=== PATIENT | female | born 1990 | race African-American/Black ===

== ENCOUNTER 2021-08-20 23:02 | Emergency (ER) | payer MEDICAID, OTHER ==
[~2021-08-20] VITALS: Ht 154.9 cm; Wt 64.0 kg
[2021-08-20 23:30] VITALS: BP 118/54
[2021-08-20] MEDS ORDERED: ONDANSETRON 4MG ODT PO ONE (23:45)
[2021-08-21] MEDS ORDERED: NAPR500T7 MT (00:58)
[2021-08-21] MEDS ORDERED: ONDA4TAB11 PO (00:58)
[2021-08-21] MEDS ORDERED: KETOROLAC 60MG/2ML VIAL IM ONE (01:00)
== END 2021-08-21 01:14 | disposition home or self-care (01) ==
LOC: ER 23:02
DX: S06.0X0A Concussion without loss of consciousness, initial encounter (principal); W22.8XXA Striking against or struck by other objects, initial encounter; Y93.89 Activity, other specified; Y92.018 Other place in single-family (private) house as the place of occurrence of the external cause
CPT/HCPCS: 70450; 99284; Q0162

== ENCOUNTER 2023-06-16 13:58 | Emergency (ER) | payer MEDICAID, OTHER ==
[~2023-06-16] VITALS: Ht 165.1 cm; Wt 77.0 kg
[~2023-06-16 13:58] MED LIST: NAPR500T7 MT; ONDA4TAB11 PO
[2023-06-16 14:04] VITALS: O2SAT 100
[2023-06-16 15:14] LABS: ALANINE AMINOTRANSFERASE 16 IU/L (10-49); ALBUMIN 4.7 g/dL (3.2-4.8); ASPARTATE AMINOTRANSFERASE 24 IU/L (<34); BILIRUBIN TOTAL 0.7 mg/dL (0.1-1.0); CALCIUM 9.4 mg/dL (8.7-10.4); CARBON DIOXIDE 22 mEq/L (21-32); CHLORIDE 106 mEq/L (98-107); CREATININE 0.8 mg/dL (0.6-1.0); GLUCOSE 119 mg/dL (70-105); POTASSIUM 3.5 mEq/L (3.5-5.1); PROTEIN TOTAL 7.3 g/dL (6.0-8.3); SODIUM 139 mEq/L (136-145); UREA NITROGEN BLOOD 15 mg/dL (9-23)
[2023-06-16 15:19] LABS: HEMATOCRIT. 37.3 % (36.0-48.0); HEMOGLOBIN. 12.3 g/dL (12.0-16.0); MEAN CORPUSCULAR HEMOGLOBIN 28.7 pg (28.0-32.0); MEAN PLATELET VOLUME 8.3 fl (7.4-10.4); PLATELET 445 x1000/uL (130-400); RED BLOOD CELL COUNT 4.28 mill/uL (4.2-5.4); RED CELL DISTRIBUTION WIDTH 20.5 % (11.6-14.6); WHITE BLOOD COUNT 15.4 x1000/uL (4.5-11.0)
[2023-06-16 15:21] LABS: DIFFERENTIAL COMMENT 1
[2023-06-16 16:00] LABS: ANISOCYTOSIS 1+; PLATELET ESTIMATE INCREASED
[2023-06-16] MEDS: ONDANSETRON 4MG ODT PO NR (17:49)
[2023-06-16] MEDS: KETOROLAC 15MG/ML VIAL IV NR (17:49)
[2023-06-16 18:11] LABS: HCG SCREEN NEGATIVE
[2023-06-16] MEDS: ACETAMINOPHEN 325MG TABLET PO NR (19:19)
[2023-06-16 19:23] LABS: CLARITY URINE CLEAR (CLEAR); COLOR URINE YELLOW (YELLOW); GLUCOSE URINE NEGATIVE (NEGATIVE); KETONES URINE 3+ (NEGATIVE); LEUKOCYTE ESTERASE URINE 1+ (NEGATIVE); NITRITE URINE NEGATIVE (NEGATIVE); OCCULT BLOOD URINE 1+ (NEGATIVE); PH URINE 8.5 (4.5-8.0); PROTEIN URINE 1+ (NEGATIVE); SPECIFIC GRAVITY URINE 1.031 (1.005-1.030)
[2023-06-16 19:45] LABS: BACTERIA URINE 2+; SQUAMOUS EPITHELIAL CELL URINE 1+ /lpf (RARE/1+)
[2023-06-16 20:29] VITALS: BP 111/68; PULSE 78; RESP 18; TEMP 98.5
== END 2023-06-16 20:33 | disposition home or self-care (01) ==
LOC: ER 13:58
DX: B34.9 Viral infection, unspecified (principal); Z98.890 Other specified postprocedural states
CPT/HCPCS: 99283; 96374; 80053; 81003; 84703; 83690; 85025; 36415; Q0162; J1885